=== PATIENT | male | born 1970 | race Caucasian/White ===

== ENCOUNTER 2024-06-24 10:32 | Outpatient (CLI) | payer OTHER, SELFPAY ==
--- NOTE | ~2024-06-24 | CT_ITS ---
CT Scan of the Chest without Contrast: Clinical Indication: Pulmonary nodule Technique: Contiguous sections were acquired throughout the chest without intravenous contrast. Dose reduction technique was used on this scan by utilizing automated exposure control and iterative recon struction technique. The dose-length product (DLP) was 266.73 mGy-cm. Findings: There is no evidence of any significant mediastinal, hilar or axillary lymphadenopathy. The mediastin al soft tissues appear normal. There is no evidence of pleural or pericardial effusion. The lungs are clear, aside from calcified granulomas in the superior segment left lower lobe. Images through the upper abdomen reveal no abnormalities. Impression: Benign calcified granulomas in the left lower lobe, as above. No suspicious nodule seen. Reviewed, dictated and finalized at location . ANALYST Impression: Benign calcified granulomas in the left lower lobe, as above. No suspicious nod ule seen.
== END 2024-06-24 10:33 | disposition home or self-care (01) ==
PROVIDERS: PCP Physician Assistant; Visit Provider Physician Assistant
DX: R91.1 Solitary pulmonary nodule (principal); J98.4 Other disorders of lung
CPT/HCPCS: 71250